=== PATIENT | male | born 2000 | race Caucasian/White ===

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

== ENCOUNTER 2020-01-06 08:00 | Outpatient (CLI) | payer MEDICAID | END 2020-01-06 23:59 | disposition home or self-care (01) | LOC: LAB.R 08:00 | PROVIDERS: ATTEND Pediatrics Pediatric Gastroenterology | DX: K85.00 Idiopathic acute pancreatitis without necrosis or infection (principal); K63.89 Other specified diseases of intestine | CPT/HCPCS: 83993 ==

== ENCOUNTER 2020-01-06 14:29 | Outpatient (CLI) | payer MEDICAID ==
[2020-01-06 14:46] LABS: BASOPHILS # (AUTO) 0.1 10^3/uL (0.0-0.1); BASOPHILS % (AUTO) 1.5 %; EOSINOPHILS # (AUTO) 0.2 10^3/uL (0.0-0.7); EOSINOPHILS % (AUTO) 3.8 %; HGB - HEMOGLOBIN 14.4 g/dL (14.0-18.0); LYMPHOCYTES # (AUTO) 2.2 10^3/uL (1.5-3.5); LYMPHOCYTES % (AUTO) 39.9 %; MEAN CORPUSCULAR HGB CONC 33.9 g/dL (32.0-36.0); MEAN CORPUSCULAR VOLUME 88.5 fL (80.0-94.0); MEAN PLATELET VOLUME 9.6 fL (7.4-11.4); MONOCYTES # (AUTO) 0.5 10^3/uL (0.0-1.0); MONOCYTES % (AUTO) 9.5 %; NEUTROPHILS # (AUTO) 2.5 10^3/uL (1.5-6.6); NEUTROPHILS % (AUTO) 45.1 %; PLT - PLATELET COUNT 214 10^3/uL (130-450); RED CELL DISTRIBUTION WIDTH 12.7 % (12.0-15.0); WHITE BLOOD COUNT 5.5 x10^3/uL (4.8-10.8)
[2020-01-06 15:10] LABS: ALBUMIN 4.7 g/dL (3.2-5.5); ALBUMIN/GLOBULIN RATIO 1.3 (1.0-2.2); ALKALINE PHOSPHATASE 56 IU/L (42-121); ALT ALANINE AMINOTRANSFERASE 20 IU/L (10-60); AST ASPARTATE AMINOTRANSFERASE 18 IU/L (10-42); BILIRUBIN,TOTAL 0.9 mg/dL (0.2-1.0); BUN - BLOOD UREA NITROGEN 10 mg/dL (6-20); CALCIUM 9.4 mg/dL (8.5-10.3); CARBON DIOXIDE - CO2 28 mmol/L (21-32); CHLORIDE 102 mmol/L (101-111); CREATININE 0.9 mg/dL (0.6-1.2); GFR - MDRD 109 (>89); GLUCOSE 95 mg/dL (70-100); LIPASE 26 U/L (22-51); SODIUM 137 mmol/L (135-145); TOTAL PROTEIN 8.3 g/dL (6.7-8.2)
[2020-01-06 15:30] LABS: CRP - C-REACTIVE PROTEIN < 1.0 mg/dL (0-1.0)
== END 2020-01-06 14:30 | disposition home or self-care (01) ==
LOC: LAB 14:29
PROVIDERS: ATTEND Pediatrics Pediatric Gastroenterology
DX: K85.00 Idiopathic acute pancreatitis without necrosis or infection (principal); K63.89 Other specified diseases of intestine
CPT/HCPCS: 36415; 80053; 82306; 83690; 85025; 85651; 86140

== ENCOUNTER 2020-08-07 15:30 | Outpatient (CLI) | payer MEDICAID ==
[2020-08-07 15:58] LABS: BASOPHILS # (AUTO) 0.1 10^3/uL (0.0-0.1); BASOPHILS % (AUTO) 0.9 %; EOSINOPHILS # (AUTO) 0.2 10^3/uL (0.0-0.7); EOSINOPHILS % (AUTO) 2.2 %; HGB - HEMOGLOBIN 14.8 g/dL (14.0-18.0); LYMPHOCYTES # (AUTO) 2.1 10^3/uL (1.5-3.5); LYMPHOCYTES % (AUTO) 30.8 %; MEAN CORPUSCULAR HEMOGLOBIN 29.1 pg (27.0-31.0); MEAN CORPUSCULAR HGB CONC 32.7 g/dL (32.0-36.0); MEAN CORPUSCULAR VOLUME 89.2 fL (80.0-94.0); MEAN PLATELET VOLUME 10.1 fL (7.4-11.4); MONOCYTES # (AUTO) 0.6 10^3/uL (0.0-1.0); MONOCYTES % (AUTO) 8.3 %; NEUTROPHILS % (AUTO) 57.5 %; PLT - PLATELET COUNT 270 10^3/uL (130-450); RED BLOOD COUNT 5.08 10^6/uL (4.70-6.10); RED CELL DISTRIBUTION WIDTH 12.5 % (12.0-15.0); WHITE BLOOD COUNT 6.9 x10^3/uL (4.8-10.8)
[2020-08-07 17:17] LABS: ALBUMIN 5.1 g/dL (3.2-5.5); ALBUMIN/GLOBULIN RATIO 1.4 (1.0-2.2); ALKALINE PHOSPHATASE 54 IU/L (42-121); ALT ALANINE AMINOTRANSFERASE 16 IU/L (10-60); AST ASPARTATE AMINOTRANSFERASE 17 IU/L (10-42); BILIRUBIN,TOTAL 1.1 mg/dL (0.2-1.0); BUN - BLOOD UREA NITROGEN 12 mg/dL (6-20); CALCIUM 10.2 mg/dL (8.5-10.3); CARBON DIOXIDE - CO2 28 mmol/L (21-32); CHLORIDE 101 mmol/L (101-111); GLUCOSE 99 mg/dL (70-100); SODIUM 139 mmol/L (135-145); TOTAL PROTEIN 8.7 g/dL (6.7-8.2)
[2020-08-07 18:02] LABS: CRP - C-REACTIVE PROTEIN < 1.0 mg/dL (0-1.0)
== END 2020-08-07 15:31 | disposition home or self-care (01) ==
LOC: LAB 15:30
PROVIDERS: ATTEND Pediatrics Pediatric Gastroenterology
DX: K52.9 Noninfective gastroenteritis and colitis, unspecified (principal)
CPT/HCPCS: 36415; 80053; 85025; 85651; 86140

== ENCOUNTER 2020-08-15 08:00 | Outpatient (CLI) | payer MEDICAID | END 2020-08-15 23:59 | disposition home or self-care (01) | LOC: LAB.R 08:00 | PROVIDERS: ATTEND Pediatrics Pediatric Gastroenterology | DX: K52.9 Noninfective gastroenteritis and colitis, unspecified (principal) | CPT/HCPCS: 83993 ==

== ENCOUNTER 2021-08-14 07:00 | Outpatient (CLI) | payer MEDICAID | END 2021-08-14 23:59 | disposition home or self-care (01) | LOC: LAB.R 07:00 | PROVIDERS: ATTEND Pediatrics Pediatric Gastroenterology | DX: K52.9 Noninfective gastroenteritis and colitis, unspecified (principal) | CPT/HCPCS: 83993 ==

== ENCOUNTER 2021-10-21 12:40 | Outpatient (CLI) | payer MEDICAID ==
[2021-10-21 12:55] LABS: BASOPHILS # (AUTO) 0.1 10^3/uL (0.0-0.1); BASOPHILS % (AUTO) 1.2 %; EOSINOPHILS # (AUTO) 0.1 10^3/uL (0.0-0.7); EOSINOPHILS % (AUTO) 2.8 %; HCT - HEMATOCRIT 44.9 % (42.0-52.0); HGB - HEMOGLOBIN 15.1 g/dL (14.0-18.0); LYMPHOCYTES # (AUTO) 1.9 10^3/uL (1.5-3.5); LYMPHOCYTES % (AUTO) 37.7 %; MEAN CORPUSCULAR HEMOGLOBIN 29.6 pg (27.0-31.0); MEAN CORPUSCULAR HGB CONC 33.6 g/dL (32.0-36.0); MEAN PLATELET VOLUME 9.4 fL (7.4-11.4); MONOCYTES # (AUTO) 0.5 10^3/uL (0.0-1.0); MONOCYTES % (AUTO) 9.1 %; NEUTROPHILS # (AUTO) 2.5 10^3/uL (1.5-6.6); PLT - PLATELET COUNT 277 10^3/uL (130-450); RED CELL DISTRIBUTION WIDTH 12.3 % (12.0-15.0)
[2021-10-21 13:19] LABS: % IRON SATURATION 39 % (20-50); ALBUMIN 4.8 g/dL (3.2-5.5); ALBUMIN/GLOBULIN RATIO 1.3 (1.0-2.2); ALKALINE PHOSPHATASE 57 IU/L (42-121); ALT ALANINE AMINOTRANSFERASE 17 IU/L (10-60); AST ASPARTATE AMINOTRANSFERASE 18 IU/L (10-42); BILIRUBIN,TOTAL 1.3 mg/dL (0.2-1.0); BUN - BLOOD UREA NITROGEN 11 mg/dL (6-20); CALCIUM 10.1 mg/dL (8.5-10.3); CARBON DIOXIDE - CO2 27 mmol/L (21-32); CHLORIDE 102 mmol/L (101-111); GFR - MDRD 95 (>89); GLUCOSE 102 mg/dL (70-100); IRON 148 ug/dL (45-182); SODIUM 139 mmol/L (135-145); TOTAL IRON BINDING CAPACITY 379 ug/dL (250-450); TOTAL PROTEIN 8.6 g/dL (6.7-8.2); TRANSFERRIN 271 mg/dL (180-329)
[2021-10-21 13:20] LABS: CRP - C-REACTIVE PROTEIN < 1.0 mg/dL (0-1.0)
[2021-10-21 13:38] LABS: FOLATE 15.16 ng/mL (5.90 - >24.8)
[2021-10-24 11:21] LABS: NIL 0.02 IU/mL; TB2-NIL 0.01 IU/mL
== END 2021-10-21 12:41 | disposition home or self-care (01) ==
LOC: LAB 12:40
PROVIDERS: ATTEND Internal Medicine Gastroenterology
DX: K52.9 Noninfective gastroenteritis and colitis, unspecified (principal)
CPT/HCPCS: 36415; 80053; 82306; 82607; 82746; 83540; 84466; 85025; 86140; 86480

== ENCOUNTER 2021-12-11 10:26 | Emergency (ER) | payer MEDICAID ==
[2021-12-11] MEDS ORDERED: CHERRY SYRUP 10 ML UDC PO ONE (11:06)
[2021-12-11] MEDS ORDERED: DEXAMETHASONE 10 MG/ML VIAL PO STA (11:06)
--- NOTE | 2021-12-11 11:27 | ED Physician Documentation ---
History of Present Illness - Stated complaint Stated Complaint: SHOULDER PX - Chief complaint Chief Complaint: Ext Problem - History obtained from History obtained from: Patient - History of Present Illness Timing: How many weeks ago (3-4) - Additonal information Additional information: 21-year-old male who spends a lot of time in an easy chair with his arms on the armrests has noted that he has begun to get some numbness and tingling in his hand on the right side especially to the fourth and fifth digits. He has some pain in the forearm associated with this as well as the elbow and radiating up into the shoulder. He has been into the urgent care clinic and he was prescribed some prednisone which she seemed to think helped a bit. Is been's prescribed some methocarbamol as well which he also seems to think helped a bit. I spoke to the patient's mother who indicates that the amount of debilitation that has present from this pain and numbness in his hand has made it where she has had to feed him even. The patient states that he is now sleeping with his arms to the side and he is no longer trying to put any weight on his elbows. He does not sitting in his easy chair any longer. He did get pain and similar symptoms to the left elbow as well. These are less defined. He denies any neck injury but he does have pain going all the way up to his neck. He has crohns disease and his mother has set up a visit to the refuse laborer. Review of Systems Constitutional: denies: Fever, Chills Ears: denies: Ear pain Nose: denies: Congestion Throat: denies: Sore throat Cardiac: denies: Chest pain / pressure, Palpitations Respiratory: denies: Dyspnea, Cough GI: denies: Abdominal Pain, Vomiting : denies: Dysuria Skin: denies: Rash Musculoskeletal: reports: Neck pain, Extremity pain, Joint pain. denies: Back pain, Extremity swelling, Joint swelling Neurologic: denies: Generalized weakness, Numbness PD PAST MEDICAL HISTORY - Past Medical History Past Medical History: Yes Cardiovascular: None Respiratory: Asthma Neuro: None Endocrine/Autoimmune: None GI: Crohn's disease : None HEENT: None Psych: None Musculoskeletal: Scoliosis Derm: None - Past Surgical History Past Surgical History: No General: Colonoscopy HEENT: Other - Present Medications Home Medications: Ambulatory Orders Medication Instructions Recorded Confirmed Adalimumab [Humira(Cf) Pen] 40 mg IM ONCE 12/11/21 12/11/21 Budesonide [Pulmicort Flexhaler] 90 mcg IH BID 12/11/21 12/11/21 methocarbamoL [Methocarbamol] 500 mg PO TID PRN 12/11/21 12/11/21 methocarbamoL [Methocarbamol] 500 mg PO TID PRN #30 tablet 12/11/21 - Allergies Allergies/Adverse Reactions: Allergies Allergy/AdvReac Type Severity Reaction Status Date / Time peanut AdvReac Rash Verified 12/11/21 10:30 - Social History Does the pt smoke?: No Smoking Status: Never smoker Does the pt drink ETOH?: No Does the pt have substance abuse?: No - Immunizations Immunizations are current?: Yes - POLST Patient has POLST: No PD ED PE NORMAL - Vitals Vital signs reviewed: Yes - General General: Alert and oriented X 3, Well developed/nourished, Other (sitting quietly with both forearms volar side up and hands slightly flexed. ) - HEENT HEENT: Atraumatic, PERRL, EOMI - Neck Neck: Supple, no meningeal sign, No bony TTP - Respiratory Respiratory: No respiratory distress - Derm Derm: Normal color, Warm and dry, No rash - Extremities Extremities: No deformity, No edema, Other (There is no pain or symptoms elicited by tapping the median nerve. There is pain to tapping the ulnar nerve at the ulnar groove. ) - Neuro Neuro: Alert and oriented X 3, mannequin molder 2-12 intact, No motor deficit, Normal speech Eye Opening: Spontaneous Motor: Obeys Commands Verbal: Oriented GCS Score: 15 - Psych Psych: Normal mood, Normal affect Results - Vitals Vitals: Vital Signs - 24 hr 12/11/21 12/11/21 10:33 12:01 Temperature 37.1 C 36.8 C Heart Rate 105 H 92 Respiratory 18 16 Rate Blood Pressure 152/87 H 148/74 H O2 Saturation 98 98 Oxygen O2 Source Room air PD MEDICAL DECISION MAKING - ED course Complexity details: reviewed results, re-evaluated patient, considered differential, d/w patient ED course: 21-year-old male with some numbness to his fourth and fifth digits and pain to his forearms bilaterally worse on the right than the left 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 He does admit to sitting oddly in a easy chair with his elbows against the side rails. He has discontinued this practice and has not recovered his function. We discussed conservative treatment and a follow-up. He will likely need to see a neurologist for electrophysiologic studies. 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 This is usually a result of repetitive movement or compression directly on the elbow. The recommendation is to avoid resting your elbows on anything and if you are doing repetitive movements with your arms decrease this. In addition we have provided a prescription for some methocarbamol for the discomfort of this. It has been escribed to [facility] in [address]. A follow-up with Dr. Loomis for further evaluation including a referral to neurology for conduction velocity studies is indicated. Discharge Date/Time: 12/11/21 12:03
[2021-12-11 12:03] VITALS: BP 148/74
== END 2021-12-11 12:03 | disposition home or self-care (01) ==
LOC: ED 10:26
DX: G56.21 Lesion of ulnar nerve, right upper limb (principal)
CPT/HCPCS: 99282; 99283; A9270

== ENCOUNTER 2021-12-14 11:11 | Outpatient (CLI) | payer MEDICAID ==
--- NOTE | 2021-12-14 12:08 | XRAY Report ---
PROCEDURE: Cervical Spine 2 View INDICATIONS: XRAY TECHNIQUE: 3 view(s) of the cervical spine were acquired. COMPARISON: None. FINDINGS: Bones: No fractures or dislocations to the C7 level. Loss of normal cervical lordosis. The lateral masses of C1 appear intact on the odontoid view. No suspicious bony lesions. Soft tissues: No prevertebral soft tissue swelling. IMPRESSION: No acute fracture. No osseous lesion. If symptoms and/or clinical suspicion for patholog y continue, further assessment with repeat plain films, or advanced imaging (e.g., CT, MRI, or bone s can) is recommended for further assessment. Reviewed by: Sebastián Yost MD on 12/14/2021 12:06 PM PST Approved by: Sebastián Yost MD on 12/14/2021 12:06 PM PST Station ID: [id number]
== END 2021-12-14 11:12 | disposition home or self-care (01) ==
LOC: DI.S 11:11
PROVIDERS: ATTEND Registered Nurse
DX: M54.12 Radiculopathy, cervical region (principal)

== ENCOUNTER 2021-12-20 10:44 | Emergency (ER) | payer MEDICAID ==
--- NOTE | 2021-12-20 11:05 | ED Physician Documentation ---
PD HPI UPPER EXT INJURY - Stated complaint Stated Complaint: ARM/SHOULDER/NECK PX - Chief complaint Chief Complaint: Trauma Ext - History obtained from History obtained from: Patient - History of Present Illness Location: Right, Left, Shoulder, Elbow Type of injury: Other (he had been resting elbows on chair while at desk/computer when first seen and Dx with right condylitis. He is now having pain left elbow and left shoulder, some pain upper back. No rash nor sores.). No: Fall, Twist Where injury occurred: Home Timing - onset: How many weeks ago (few weeks of first elbow pain and now multiple joints. History of Crohns disease.) Timing - duration: Weeks Timing - details: Gradual onset, Still present Worsened by: Moving, Palpating (medial elbows, and posterior shoulders.) Associated symptoms: No: Weakness, Numbness, Swelling Similar symptoms before: No diagnosis (presumed condylitis of elbows on recent visit.) Recently seen: Clinic (seen in ER and then PMD. Not improved with Tylenol. Can't take NSAIDs due to Crohns. Had felt improved after single dose of Decadron at prior ER visit.) Review of Systems Constitutional: reports: Myalgias. denies: Fever, Chills Nose: denies: Rhinorrhea / runny nose, Congestion Throat: denies: Sore throat Cardiac: denies: Chest pain / pressure Respiratory: denies: Cough GI: reports: Abdominal Pain (mild chronic). denies: Nausea, Vomiting, Diarrhea (not currently; states his Crohns is under control now.) PD PAST MEDICAL HISTORY - Past Medical History Cardiovascular: None Respiratory: Asthma Neuro: None Endocrine/Autoimmune: None GI: Crohn's disease : None HEENT: None Psych: None Musculoskeletal: Scoliosis Derm: None - Past Surgical History Past Surgical History: No General: Colonoscopy HEENT: Other - Present Medications Home Medications: Ambulatory Orders Medication Instructions Recorded Confirmed Adalimumab [Humira(Cf) Pen] 40 mg IM ONCE 12/11/21 12/11/21 Budesonide [Pulmicort Flexhaler] 90 mcg IH BID 12/11/21 12/11/21 methocarbamoL [Methocarbamol] 500 mg PO TID PRN 12/11/21 12/11/21 methocarbamoL [Methocarbamol] 500 mg PO TID PRN #30 tablet 12/11/21 dexAMETHasone [Decadron] 4 mg PO DAILY #7 tablet 12/20/21 methocarbamoL [Robaxin] 500 mg PO Q6H PRN #30 tablet 12/20/21 oxyCODONE [Roxicodone] 5 mg PO Q6H PRN #15 tablet 12/20/21 - Allergies Allergies/Adverse Reactions: Allergies Allergy/AdvReac Type Severity Reaction Status Date / Time peanut AdvReac Rash Verified 12/11/21 10:30 tree nut AdvReac Unknown Verified 12/20/21 10:56 - Social History Does the pt smoke?: No Smoking Status: Never smoker Does the pt drink ETOH?: No Does the pt have substance abuse?: No - Immunizations Immunizations are current?: Yes - POLST Patient has POLST: No PD ED PE NORMAL - Vitals Vital signs reviewed: Yes - General General: Alert and oriented X 3, Well developed/nourished - Neck Neck: Supple, no meningeal sign, No adenopathy - Cardiac Cardiac: RRR, No murmur, No rub - Respiratory Respiratory: Clear bilaterally - Derm Derm: Normal color, Warm and dry, No rash - Extremities Extremities: Other (both elbows tender at medial epicondyles without redness nor rash. Some tender right posterior shoulder. ) - Neuro Neuro: Alert and oriented X 3, No motor deficit, No sensory deficit, Normal speech Results - Vitals Vitals: Vital Signs - 24 hr 12/20/21 12/20/21 10:52 12:44 Temperature 36.9 C 36.6 C Heart Rate 86 88 Respiratory 14 16 Rate Blood Pressure 140/75 H 128/80 O2 Saturation 98 100 Oxygen O2 Source Room air - Labs Labs: Laboratory Tests 12/20/21 12/20/21 12/20/21 11:58 11:58 11:58 WBC RBC Hgb Hct MCV MCH MCHC RDW Plt Count MPV Neut # (Auto) Lymph # (Auto) [place] # (Auto) Eos # (Auto) Baso # (Auto) Absolute Nucleated RBC Nucleated RBC % ESR 1 Sodium 137 Potassium 4.0 Chloride 101 Carbon Dioxide 27 Anion Gap 9.0 BUN 13 Creatinine 0.9 Estimated GFR (MDRD) 107 Glucose 99 Calcium 10.0 Total Bilirubin 1.1 H AST 22 ALT 30 Alkaline Phosphatase 46 Total Creatine Kinase 128 C-Reactive Protein < 1.0 Total Protein 8.0 Albumin 4.7 Globulin 3.3 Albumin/Globulin Ratio 1.4 Lipase 32 Rheumatoid Factor NEGATIVE 12/20/21 11:58 WBC 5.7 RBC 4.84 Hgb 14.6 Hct 43.1 MCV 89.0 MCH 30.2 MCHC 33.9 RDW 12.8 Plt Count 276 MPV 9.5 Neut # (Auto) 3.0 Lymph # (Auto) 2.0 [place] # (Auto) 0.5 Eos # (Auto) 0.1 Baso # (Auto) 0.1 Absolute Nucleated RBC 0.00 Nucleated RBC % 0.0 ESR Sodium Potassium Chloride Carbon Dioxide Anion Gap BUN Creatinine Estimated GFR (MDRD) Glucose Calcium Total Bilirubin AST ALT Alkaline Phosphatase Total Creatine Kinase C-Reactive Protein Total Protein Albumin Globulin Albumin/Globulin Ratio Lipase Rheumatoid Factor PD MEDICAL DECISION MAKING - ED course Complexity details: reviewed results, considered differential (polyarthritis. May be just epicondylitis of both elbow from motion/pressure. But consider autoimmune disorder. Pt being referred to Rheum, so can get labs initially evaluating for that. ), d/w patient Departure - Departure Disposition: Home, Self Care Clinical Impression: Epicondylitis elbow, medial Qualifiers: Laterality: unspecified laterality Qualified Code(s): M77.00 - Medial epicondylitis, unspecified elbow Condition: Stable Record reviewed to determine appropriate education?: Yes Instructions: ED Epicondylitis Lateral Elbow Follow-Up: Chalino Loomis MD [Primary Care Provider] - Prescriptions: dexAMETHasone [Decadron] 4 mg PO DAILY #7 tablet methocarbamoL [Robaxin] 500 mg PO Q6H PRN #30 tablet PRN Reason: Spasms oxyCODONE [Roxicodone] 5 mg PO Q6H PRN #15 tablet PRN Reason: Pain Comments: I would suggest picking up some forearm bands that you can get at the pharmacy that are used for "tennis elbow". These are typically in with other sports where injury treatment devices such as knee braces and ankle braces and wrist braces. But these are particularly elbow bands that are used on the proximal forearm to take some of the movement and pressure out of the tendon movement at the elbow. They are not worn over the area that is tender in particular. This would be useful for elbow tendinitis which it seems like. We can also use steroid and anti-inflammatories of dexamethasone daily for a week. To that add Tylenol 4 times daily if needed for pain and oxycodone if needed for worse pain. There may not necessarily be a muscle spasm component to this but if your methocarbamol feels like it is helpful and you can continue that. We did do some blood tests here that would screen for more systemic autoimmune arthritides such as rheumatoid or lupus. The results of these will will come back in a day or 2. Have your primary care follow-up with them and will be a good lodging point for a further rheumatology evaluation. Continue your other usual medicines. I transmitted your prescriptions to [facility] in [place]. I am prescribing a short course of narcotic pain medication for you. These are potentially dangerous and addictive medications that should be used carefully. These medications may constipate you. Take an [id number] stool softener such as docusate twice daily with plenty of water while taking these medications. If you go 24 hours without a bowel movement, take [id number] MiraLAX, per package instructions. Do not drink or drive while taking these medications. If you received narcotic or sedating medications while in the emergency department do not drive for 24 hours. Store this medication in a safe, secure place and out of reach of children. It is a violation of federal law to give or sell this medication to another person or to use in a manner other than prescribed. The ED will not refill narcotic prescriptions, including prescriptions lost or stolen. You can dispose of unwanted medications at the [facility]'s office or at several pharmacies such as [facility]. Discharge Date/Time: 12/20/21 12:44
[2021-12-20] MEDS ORDERED: oxyCODONE 5 MG TABLET PO STA (11:45)
[2021-12-20] MEDS ORDERED: DEXAMETHASONE 10 MG/ML VIAL PO STA (11:45)
[2021-12-20] MEDS ORDERED: CHERRY SYRUP 10 ML UDC PO ONE (11:45)
[2021-12-20 12:04] LABS: BASOPHILS # (AUTO) 0.1 10^3/uL (0.0-0.1); BASOPHILS % (AUTO) 1.1 %; EOSINOPHILS # (AUTO) 0.1 10^3/uL (0.0-0.7); EOSINOPHILS % (AUTO) 2.1 %; HCT - HEMATOCRIT 43.1 % (42.0-52.0); HGB - HEMOGLOBIN 14.6 g/dL (14.0-18.0); LYMPHOCYTES % (AUTO) 35.1 %; MEAN CORPUSCULAR HEMOGLOBIN 30.2 pg (27.0-31.0); MEAN CORPUSCULAR HGB CONC 33.9 g/dL (32.0-36.0); MEAN PLATELET VOLUME 9.5 fL (7.4-11.4); MONOCYTES # (AUTO) 0.5 10^3/uL (0.0-1.0); MONOCYTES % (AUTO) 9.2 %; NEUTROPHILS % (AUTO) 52.3 %; PLT - PLATELET COUNT 276 10^3/uL (130-450); RED BLOOD COUNT 4.84 10^6/uL (4.70-6.10); RED CELL DISTRIBUTION WIDTH 12.8 % (12.0-15.0); WHITE BLOOD COUNT 5.7 x10^3/uL (4.8-10.8)
[2021-12-20 12:27] LABS: ALBUMIN 4.7 g/dL (3.2-5.5); ALBUMIN/GLOBULIN RATIO 1.4 (1.0-2.2); ALKALINE PHOSPHATASE 46 IU/L (42-121); ALT ALANINE AMINOTRANSFERASE 30 IU/L (10-60); AST ASPARTATE AMINOTRANSFERASE 22 IU/L (10-42); BILIRUBIN,TOTAL 1.1 mg/dL (0.2-1.0); BUN - BLOOD UREA NITROGEN 13 mg/dL (6-20); CARBON DIOXIDE - CO2 27 mmol/L (21-32); CHLORIDE 101 mmol/L (101-111); CK- CREATINE KINASE 128 IU/L (22-269); CREATININE 0.9 mg/dL (0.6-1.2); GFR - MDRD 107 (>89); GLUCOSE 99 mg/dL (70-100); LIPASE 32 U/L (22-51); SODIUM 137 mmol/L (135-145)
[2021-12-20 12:45] VITALS: BP 128/80
[2021-12-20 12:45] LABS: CRP - C-REACTIVE PROTEIN < 1.0 mg/dL (0-1.0)
[2021-12-20 13:00] LABS: RHEUMATOID FACTOR NEGATIVE (Negative)
[2021-12-22 09:31] LABS: ANA SCREEN NEGATIVE (NEGATIVE)
== END 2021-12-20 12:44 | disposition home or self-care (01) ==
LOC: ED 10:44
DX: M77.00 Medial epicondylitis, unspecified elbow (principal)
CPT/HCPCS: 36415; 80053; 82550; 83690; 85025; 85651; 86038; 86140; 86430; 86812; 99282; 99283; A9270

== ENCOUNTER 2021-12-24 11:32 | Emergency (ER) | payer MEDICAID ==
[2021-12-24] MEDS ORDERED: SODIUM CHLORIDE 0.9% 1,000 ML IV STA (11:53)
[2021-12-24] MEDS ORDERED: diphenhydrAMINE INJ 50 MG/ML VIAL IVP STA (11:53)
[2021-12-24] MEDS ORDERED: KETOROLAC 30 MG/ML VIAL IVP STA (11:53)
--- NOTE | 2021-12-24 12:00 | ED Physician Documentation ---
History of Present Illness - Stated complaint Stated Complaint: HEAD PX, HEADACHE - Chief complaint Chief Complaint: Neuro - Additonal information Additional information: 21-year-old male presents emergency department for evaluation of a posterior headache that he reports began about 3 to 4 days ago. He describes it as a vice-like like he is wearing a helmet. Pain radiates down into the neck. Pain is constant. Not worse with positioning or supine position. No fevers, nausea or vomiting. No diplopia. He has taken Tylenol without relief of headache. Headache was not sudden onset. No focal deficits. Denies any hx of headaches p rior to this Seen here 4 days ago for evaluation of multiple joint pain including elbows and arms/shoulders. At that time ER testing included sed rate, CRP, HLA FERNANDO and RA factor which were all negative. Patient is currently taking dexamethasone which she does not feel is improved his symptoms. He had does have a history of Crohn's disorder for which he takes Humira. His most recent injection was 12/23/2021. He does have a referral pending to rheumatology. Review of Systems Constitutional: denies: Fever, Chills Eyes: denies: Loss of vision, Decreased vision, Photophobia Ears: reports: Reviewed and negative Nose: reports: Reviewed and negative Throat: reports: Dental pain / toothache Cardiac: reports: Reviewed and negative Respiratory: reports: Reviewed and negative GI: reports: Reviewed and negative : reports: Dysuria Skin: reports: Reviewed and negative Musculoskeletal: reports: Neck pain, Joint pain. denies: Extremity pain, Joint swelling Neurologic: reports: Headache. denies: Generalized weakness, Focal weakness, Numbness, Difficulty speaking, Syncope, Seizure, Confused, LOC Psychiatric: reports: Reviewed and negative Endocrine: reports: Reviewed and negative PD PAST MEDICAL HISTORY - Past Medical History Past Medical History: Yes Cardiovascular: None Respiratory: Asthma Neuro: Headaches Endocrine/Autoimmune: None GI: Crohn's disease : None HEENT: None Psych: None Musculoskeletal: Scoliosis Derm: None - Past Surgical History Past Surgical History: No General: Colonoscopy HEENT: Other - Present Medications Home Medications: Ambulatory Orders Medication Instructions Recorded Confirmed Adalimumab [Humira(Cf) Pen] 40 mg IM ONCE 12/11/21 12/24/21 Budesonide [Pulmicort Flexhaler] 90 mcg IH BID 02/08/22 02/21/22 dexAMETHasone [Decadron] 4 mg PO DAILY #7 tablet 12/20/21 12/24/21 methocarbamoL [Robaxin] 500 mg PO Q6H PRN #30 tablet 12/20/21 12/24/21 oxyCODONE [Roxicodone] 5 mg PO Q6H PRN #15 tablet 12/20/21 12/24/21 - Allergies Allergies/Adverse Reactions: Allergies Allergy/AdvReac Type Severity Reaction Status Date / Time peanut AdvReac Rash Verified 12/24/21 11:36 tree nut AdvReac Unknown Verified 12/24/21 11:36 - Social History Does the pt smoke?: No Smoking Status: Never smoker Does the pt drink ETOH?: No Does the pt have substance abuse?: No - Immunizations Immunizations are current?: Yes - POLST Patient has POLST: No PD ED PE NORMAL - General General: Alert and oriented X 3, No acute distress, Well developed/nourished - HEENT HEENT: Atraumatic, Ears normal, Moist mucous membranes, Pharynx benign. No: Dentition benign (poor dentitiion; gingival inflammation) - Neck Neck: Supple, no meningeal sign, No bony TTP, Thyroid normal, No JVD - Cardiac Cardiac: RRR, No murmur, No gallop, No rub - Respiratory Respiratory: No respiratory distress, Clear bilaterally - Abdomen Abdomen: Normal bowel sounds, Soft, Non tender - Rectal Rectal: Deferred, Pt declined - Back Back: No CVA TTP, No spinal TTP - Derm Derm: Normal color, Warm and dry, No rash - Extremities Extremities: No deformity, No tenderness to palpate, No edema. No: Normal ROM s pain (mild tenderness with ROM of elbow and shoudler joints; full motor strength no swelling, erythema) - Neuro Neuro: Alert and oriented X 3, market maker 2-12 intact, No motor deficit, No sensory deficit, Normal speech Eye Opening: Spontaneous Motor: Obeys Commands Verbal: Oriented GCS Score: 15 Results - Vitals Vitals: Vital Signs - 24 hr 12/24/21 11:36 Temperature 36.5 C Heart Rate 93 Respiratory 18 Rate Blood Pressure 129/84 H O2 Saturation 97 Oxygen O2 Source Room air PD MEDICAL DECISION MAKING - ED course Complexity details: reviewed old records, reviewed results, re-evaluated patient, considered differential, d/w patient ED course: 21-year-old male who is well-appearing presents the emergency department for reevaluation of multiple joint pains namely his elbows and shoulders as well as headache and neck and upper back pain. The symptoms began 3 days ago but he did have a ED visit 4 days ago for joint pain. Currently on dexamethasone. He does have a history of Crohn's disorder for which she is on Humira. No fevers focal neuro changes. Headache was not sudden onset. Patient was given saline, Benadryl and Toradol with minimal relief of pain. Patient is currently under referral to a teletype technician for further evaluation of multiple joint complaints. ED testing completed 4 days ago did not yield an obvious cause as his ASA Rh and HLA, esr and sed rate factors were all negative. Patient is encouraged occasional use of NSAID medication for headache, use of the methocarbamol as he does experience significant tension in his upper neck and back as well as Tylenol. Emergent worrisome return precautions were discussed. Departure - Departure Disposition: 01 Home, Self Care Clinical Impression: Multiple joint pain Headache Qualifiers: Headache type: unspecified Headache chronicity pattern: acute headache Intractability: not intractable Qualified Code(s): R51.9 - Headache, unspecified Condition: Stable Record reviewed to determine appropriate education?: Yes Instructions: ED Cephalgia Unspecified Comments: [place] you are seen today in the ER for evaluation of a headache as well as reevaluation of multiple joint pains. When you are seen 4 days ago you had fairly extensive laboratory testing that was all essentially unremarkable. This did include testing for diseases such as rheumatoid arthritis and lupus. The cause of your headache is not clear though it may be related to some of the medications that you are prescribed for your Crohn's disease or the Decadron. I encourage you to stay well-hydrated. For the tension you are feeling in your neck and upper back it is okay to take the methocarbamol. Longer-term evaluation of your joint concerns is going to be best served with a teletype technician. Please continue to follow-up for this referral. Return to the ER if you develop any fevers, have uncontrolled vomiting, slurred speech, facial droop or sudden weakness in your arms or legs.
[2021-12-24 12:57] VITALS: BP 130/80
== END 2021-12-24 12:59 | disposition home or self-care (01) ==
LOC: ED 11:32
DX: M25.522 Pain in left elbow (principal); R51.9 Headache, unspecified; M25.521 Pain in right elbow; M25.512 Pain in left shoulder; M25.511 Pain in right shoulder; M54.2 Cervicalgia; M54.6 Pain in thoracic spine
CPT/HCPCS: 96374; 96375; 99282; 99283; J1200

== ENCOUNTER 2022-01-27 10:22 | Outpatient (CLI) | payer MEDICAID ==
[2022-01-27 10:41] LABS: HGB - HEMOGLOBIN 14.3 g/dL (14.0-18.0); MEAN CORPUSCULAR HEMOGLOBIN 30.2 pg (27.0-31.0); MEAN CORPUSCULAR HGB CONC 33.3 g/dL (32.0-36.0); MEAN CORPUSCULAR VOLUME 90.9 fL (80.0-94.0); RED BLOOD COUNT 4.73 10^6/uL (4.70-6.10); WHITE BLOOD COUNT 5.4 x10^3/uL (4.8-10.8)
[2022-01-27 10:42] LABS: BASOPHILS # (AUTO) 0.1 10^3/uL (0.0-0.1); BASOPHILS % (AUTO) 1.3 %; EOSINOPHILS # (AUTO) 0.1 10^3/uL (0.0-0.7); LYMPHOCYTES # (AUTO) 2.4 10^3/uL (1.5-3.5); LYMPHOCYTES % (AUTO) 43.8 %; MONOCYTES # (AUTO) 0.6 10^3/uL (0.0-1.0); MONOCYTES % (AUTO) 10.9 %; NEUTROPHILS # (AUTO) 2.3 10^3/uL (1.5-6.6); NEUTROPHILS % (AUTO) 41.8 %; PLT - PLATELET COUNT 245 10^3/uL (130-450)
[2022-01-27 11:21] LABS: ALBUMIN 4.7 g/dL (3.2-5.5); ALBUMIN/GLOBULIN RATIO 1.4 (1.0-2.2); ALKALINE PHOSPHATASE 52 IU/L (42-121); ALT ALANINE AMINOTRANSFERASE 41 IU/L (10-60); AST ASPARTATE AMINOTRANSFERASE 28 IU/L (10-42); BILIRUBIN,TOTAL 0.9 mg/dL (0.2-1.0); BUN - BLOOD UREA NITROGEN 12 mg/dL (6-20); CALCIUM 9.8 mg/dL (8.5-10.3); CARBON DIOXIDE - CO2 28 mmol/L (21-32); CHLORIDE 100 mmol/L (101-111); CREATININE 0.8 mg/dL (0.6-1.2); GFR - MDRD 122 (>89); GLUCOSE 100 mg/dL (70-100); POTASSIUM 3.9 mmol/L (3.5-5.0); SODIUM 138 mmol/L (135-145); TOTAL PROTEIN 8.1 g/dL (6.7-8.2)
[2022-01-27 11:25] LABS: CRP - C-REACTIVE PROTEIN < 1.0 mg/dL (0-1.0)
== END 2022-01-27 10:23 | disposition home or self-care (01) ==
LOC: LAB 10:22
PROVIDERS: ATTEND Internal Medicine Gastroenterology
DX: K52.9 Noninfective gastroenteritis and colitis, unspecified (principal)
CPT/HCPCS: 36415; 80053; 85025; 86140

== ENCOUNTER 2022-04-22 11:41 | Outpatient (CLI) | payer MEDICAID ==
[2022-04-22 11:59] LABS: BASOPHILS # (AUTO) 0.1 10^3/uL (0.0-0.1); BASOPHILS % (AUTO) 1.8 %; EOSINOPHILS # (AUTO) 0.5 10^3/uL (0.0-0.7); EOSINOPHILS % (AUTO) 8.3 %; HCT - HEMATOCRIT 46.4 % (42.0-52.0); HGB - HEMOGLOBIN 15.3 g/dL (14.0-18.0); LYMPHOCYTES # (AUTO) 2.5 10^3/uL (1.5-3.5); LYMPHOCYTES % (AUTO) 40.9 %; MEAN CORPUSCULAR HEMOGLOBIN 29.8 pg (27.0-31.0); MEAN CORPUSCULAR VOLUME 90.3 fL (80.0-94.0); MEAN PLATELET VOLUME 9.9 fL (7.4-11.4); MONOCYTES # (AUTO) 0.5 10^3/uL (0.0-1.0); NEUTROPHILS # (AUTO) 2.4 10^3/uL (1.5-6.6); NEUTROPHILS % (AUTO) 39.8 %; PLT - PLATELET COUNT 260 10^3/uL (130-450); RED BLOOD COUNT 5.14 10^6/uL (4.70-6.10); RED CELL DISTRIBUTION WIDTH 11.9 % (12.0-15.0)
[2022-04-22 12:27] LABS: ALBUMIN 4.6 g/dL (3.2-5.5); ALBUMIN/GLOBULIN RATIO 1.1 (1.0-2.2); ALKALINE PHOSPHATASE 58 IU/L (42-121); ALT ALANINE AMINOTRANSFERASE 24 IU/L (10-60); AST ASPARTATE AMINOTRANSFERASE 20 IU/L (10-42); BILIRUBIN,TOTAL 0.9 mg/dL (0.2-1.0); BUN - BLOOD UREA NITROGEN 12 mg/dL (6-20); CALCIUM 10.2 mg/dL (8.5-10.3); CARBON DIOXIDE - CO2 30 mmol/L (21-32); CHLORIDE 103 mmol/L (101-111); GFR - MDRD 94 (>89); GLUCOSE 111 mg/dL (70-100); POTASSIUM 3.8 mmol/L (3.5-5.0); SODIUM 140 mmol/L (135-145); TOTAL PROTEIN 8.6 g/dL (6.7-8.2)
[2022-04-22 13:40] LABS: CRP - C-REACTIVE PROTEIN < 1.0 mg/dL (0-1.0)
== END 2022-04-22 11:42 | disposition home or self-care (01) ==
LOC: LAB 11:41
PROVIDERS: ATTEND Internal Medicine Gastroenterology
DX: K52.9 Noninfective gastroenteritis and colitis, unspecified (principal)
CPT/HCPCS: 36415; 80053; 85025; 86140

== ENCOUNTER 2022-09-05 08:00 | Outpatient (CLI) | payer MEDICAID ==
--- NOTE | 2022-09-06 09:16 | XRAY Report ---
PROCEDURE: Cervical Spine 2 View INDICATIONS: WEAKNESS OF BILATERAL ARMS TECHNIQUE: 3view(s) of the cervical spine were acquired. COMPARISON: X-ray cervical spine, 12/14/1021. FINDINGS: Bones: No fractures or dislocations to the T1 level. Odontoid view is suboptimal. The lateral diann s of C1 appear intact on the odontoid view. No suspicious bony lesions. Soft tissues: No prevertebral soft tissue swelling. IMPRESSION: 1. No acute osseous abnormalities of the odontoid view is suboptimal. 2. If there is clinical suspicion for radiculopathy symptoms, MRI would be helpful. Reviewed by: Krista Garcia MD on 09/06/2022 9:15 AM PDT Approved by: Krista Garcia MD on 09/06/2022 9:15 AM PDT Station ID: [id number]
== END 2022-09-05 23:59 | disposition home or self-care (01) ==
LOC: DI.S 08:00
PROVIDERS: ATTEND Registered Nurse
DX: R29.898 Other symptoms and signs involving the musculoskeletal system (principal)

== ENCOUNTER 2022-10-03 13:58 | Outpatient (CLI) | payer MEDICAID ==
--- NOTE | 2022-10-03 15:42 | MRI Report ---
PROCEDURE: CERVICAL SPINE WO INDICATIONS: BILATERAL ARM WEAKNESS, CERVICAL RADICULOPATHY TECHNIQUE: Noncontrast sagittal T1 spin echo and T2 fast spin echo, sagittal STIR, foraminal oblique sagittal T2 fast spin echo, and axial gradient echo or T2 fast spin echo through the cervical spine. COMPARISON: None. FINDINGS: Image quality: Excellent. Alignment and Curvature: There is normal bony alignment. Bone Marrow: Marrow demonstrates normal overall signal. Spinal Cord: Visualized spinal cord has normal size and signal. No cerebellar tonsillar herniation. Regional Soft Tissues: No paravertebral masses. Prevertebral soft tissues are normal in thickness. C2-C3: Normal in appearance. C3-C4: Normal in appearance. C4-C5: Normal in appearance. C5-C6: Normal in appearance. C6-C7: Normal in appearance. C7-T1: Normal in appearance. IMPRESSION: Unremarkable MRI of the cervical spine without acute finding, significant degenerative change, spinal canal stenosis, or neural foraminal stenosis. Reviewed by: Luke Etienne MD on 10/03/2022 3:41 PM PST Approved by: Luke Etienne MD on 10/03/2022 3:41 PM PST Station ID: [id number]
== END 2022-10-03 13:59 | disposition home or self-care (01) ==
LOC: DI 13:58
PROVIDERS: ATTEND Registered Nurse
DX: M54.12 Radiculopathy, cervical region (principal); R29.898 Other symptoms and signs involving the musculoskeletal system

== ENCOUNTER 2023-02-09 15:20 | Emergency (ER) | payer MEDICAID ==
[2023-02-09] MEDS ORDERED: LORazepam 2 MG/ML VIAL IVP STA ×2 (15:46→16:16)
[2023-02-09] MEDS ORDERED: SODIUM CHLORIDE 0.9% 1,000 ML IV STA (15:46)
--- NOTE | 2023-02-09 15:48 | ED Physician Documentation ---
History of Present Illness - Stated complaint Stated Complaint: RACING HEART, NAUSEA - Chief complaint Chief Complaint: Cardiac - Additonal information Additional information: 22-year-old male presents to the emergency department stating to this provider that he is having a panic attack. He states that about 2 weeks ago he took a tincture of CBD which he reports gave him a "dissociated state." Since then when he thinks about that event he will have panic and worry. Last night he had a panic attack which she was able to calm himself through it. However today when he thinks about his dissociative state, he began having racing heart, racing thoughts, nausea and substernal chest pain and chest pressure and can not calm himself. Reports he is very worried about his heart. The patient does have a history of Crohn's for which she takes Humira. Also has a history of asthma for which she is on 2 inhalers. States that the panic attack caused his asthma to flare so he took the albuterol which only worsened the heart rate. He does endorse casual THC use in addition to the CBD tinctures. Denies any other drug use. Reports a longstanding history of anxiety for which she is unmedicated. There is no dyspnea. No pleuritic chest pain. No unilateral leg swelling. He is not on any control or OCP or hormone supplement. No recent surgeries. No personal history of blood clots or cancer Review of Systems Constitutional: denies: Fever, Chills Throat: reports: Reviewed and negative Cardiac: reports: Chest pain / pressure, Palpitations. denies: Pedal edema Respiratory: reports: Wheezing. denies: Dyspnea, Cough GI: reports: Reviewed and negative : reports: Reviewed and negative Skin: reports: Reviewed and negative Musculoskeletal: reports: Reviewed and negative PD PAST MEDICAL HISTORY - Past Medical History Cardiovascular: None Respiratory: Asthma Neuro: Headaches Endocrine/Autoimmune: None GI: Crohn's disease : None HEENT: None Psych: None Musculoskeletal: Scoliosis Derm: None - Past Surgical History Past Surgical History: No General: Colonoscopy HEENT: Other - Present Medications Home Medications: Ambulatory Orders Medication Instructions Recorded Confirmed Adalimumab [Humira(Cf) Pen] 40 mg IM ONCE 12/11/21 12/24/21 Budesonide [Pulmicort Flexhaler] 90 mcg IH BID 12/11/21 12/24/21 dexAMETHasone [Decadron] 4 mg PO DAILY #7 tablet 12/20/21 12/24/21 methocarbamoL [Robaxin] 500 mg PO Q6H PRN #30 tablet 12/20/21 12/24/21 oxyCODONE [Roxicodone] 5 mg PO Q6H PRN #15 tablet 12/20/21 12/24/21 Propranolol [Inderal] 10 mg PO TID PRN #30 tablet 02/09/23 - Allergies Allergies/Adverse Reactions: Allergies Allergy/AdvReac Type Severity Reaction Status Date / Time peanut AdvReac Rash Verified 02/09/23 15:35 tree nut AdvReac Unknown Verified 02/09/23 15:35 - Social History Does the pt smoke?: No Smoking Status: Never smoker Does the pt drink ETOH?: No Does the pt have substance abuse?: No - Immunizations Immunizations are current?: Yes - POLST Patient has POLST: No PD ED PE NORMAL - General General: Alert and oriented X 3. No: No acute distress (Quite anxious appearing. Disheveled. Dressed in [employer]) - HEENT HEENT: Atraumatic, Moist mucous membranes, Pharynx benign - Cardiac Cardiac: RRR (Sinus tachycardia variable rate in the 140s.), No murmur, Strong equal pulses - Respiratory Respiratory: No respiratory distress, Clear bilaterally - Abdomen Abdomen: Normal bowel sounds, Soft - Back Back: No CVA TTP - Derm Derm: Normal color, Warm and dry, No rash - Extremities Extremities: No deformity, No tenderness to palpate, Normal ROM s pain - Neuro Neuro: Alert and oriented X 3, rn iv therapy 2-12 intact Eye Opening: Spontaneous Motor: Obeys Commands Verbal: Oriented GCS Score: 15 Results - Vitals Vitals: Vital Signs - 24 hr 02/09/23 02/09/23 02/09/23 15:29 16:11 16:32 Temperature 36.9 C Heart Rate 150 H 120 H 112 H Respiratory 18 16 16 Rate Blood Pressure 146/78 H 132/85 H 141/87 H O2 Saturation 100 98 97 02/09/23 02/09/23 02/09/23 17:09 17:45 18:00 Temperature Heart Rate 123 H 127 H 130 H Respiratory 20 20 16 Rate Blood Pressure 139/79 H 130/85 H 135/84 H O2 Saturation 98 98 98 02/09/23 02/09/23 18:32 18:34 Temperature Heart Rate 124 H 114 H Respiratory 15 20 Rate Blood Pressure 132/85 H O2 Saturation 98 98 Oxygen O2 Source Room air - EKG (time done) 1529 EKG releavant findings:: EKG personally interpreted by author of this note. Relevant findings are: Rate: Rate (enter#) (144), Tachy Rhythm: Sinus tachycardia Linn: Normal Intervals: No: Prolonged QT QRS: Normal Ischemia: ST depression (Inferior leads. Likely rate dependent) Compare to prior EKG: Old EKG unavailable Computer interpretation: Agree with computer - Labs Labs: Laboratory Tests 02/09/23 02/09/23 02/09/23 15:49 15:49 15:49 WBC 7.1 RBC 5.17 Hgb 15.3 Hct 44.5 MCV 86.1 MCH 29.6 MCHC 34.4 RDW 12.2 Plt Count 276 MPV 10.1 Neut # (Auto) 4.4 Lymph # (Auto) 2.1 Chilton # (Auto) 0.4 Eos # (Auto) 0.1 Baso # (Auto) 0.1 Absolute Nucleated RBC 0.00 Nucleated RBC % 0.0 Sodium 138 Potassium 3.4 L Chloride 105 Carbon Dioxide 23 Anion Gap 10.0 BUN 11 Creatinine 1.2 Estimated GFR (MDRD) 76 L Glucose 142 H Calcium 9.8 Total Bilirubin 1.1 H AST 20 ALT 19 Alkaline Phosphatase 53 Troponin I High Sens < 2.3 L Total Protein 8.5 H Albumin 4.8 Globulin 3.7 Albumin/Globulin Ratio 1.3 Lipase 35 Urine Opiates Screen Ur Oxycodone Screen Urine Methadone Screen Ur Propoxyphene Screen Ur Barbiturates Screen Ur Tricyclics Screen Ur Phencyclidine Scrn Ur Amphetamine Screen U Methamphetamines Scrn U Benzodiazepines Scrn Urine Cocaine Screen U Cannabinoids Screen 02/09/23 16:00 WBC RBC Hgb Hct MCV MCH MCHC RDW Plt Count MPV Neut # (Auto) Lymph # (Auto) Chilton # (Auto) Eos # (Auto) Baso # (Auto) Absolute Nucleated RBC Nucleated RBC % Sodium Potassium Chloride Carbon Dioxide Anion Gap BUN Creatinine Estimated GFR (MDRD) Glucose Calcium Total Bilirubin AST ALT Alkaline Phosphatase Troponin I High Sens Total Protein Albumin Globulin Albumin/Globulin Ratio Lipase Urine Opiates Screen NEGATIVE Ur Oxycodone Screen NEGATIVE Urine Methadone Screen NEGATIVE Ur Propoxyphene Screen NEGATIVE Ur Barbiturates Screen NEGATIVE Ur Tricyclics Screen NEGATIVE Ur Phencyclidine Scrn NEGATIVE Ur Amphetamine Screen NEGATIVE U Methamphetamines Scrn NEGATIVE U Benzodiazepines Scrn NEGATIVE Urine Cocaine Screen NEGATIVE U Cannabinoids Screen NEGATIVE - Rads (name of study) cxr Relevant Findings:: EMP independent interpretation of test (No acute cardiopulmonary process) PD Medical Decision Making - ED course Complexity details: reviewed results, re-evaluated patient, considered differential, d/w patient ED course: 22-year-old male presents emergency department attended by his father for evaluation of panic, worry and racing heart. Reports the symptoms began about 2 weeks ago after he had a dissociative effect after using a tincture of CBD oil. He does endorse some recreational cannabis use otherwise. He states a longstanding history of anxiety but over the last few weeks when he thinks about his dissociative event he often begins to feel worry. He has been unable to break this cycle over the last 24 hours. On presentation to the ER I am greeted by an alert well-appearing though anxious young adult male. On the monitor he is noted to be in sinus tachycardia rate variable in the 140s. With the exception of tachycardia cardiopulmonary auscultation was unremarkable. He denied chest pain or shortness of air. No abdominal tenderness was elicited. He is not febrile. There is no hypotension. I obtained CBC electrolytes and high-sensitivity troponin. No findings to suggest anemia or electrolyte disturbance as a cause of the tachycardia. Urine drug screen is also negative for other causative agents such as amphetamines/methamphetamines. He is noted to be cannabis negative. Chest x-ray per radiology interpretation shows no acute focal opacities. No findings of pleural effusion, pneumothorax or pneumonia. By Wells criteria with 1.5 points, he is considered low risk for a PE. Initially I did give the patient a single dose of 1 mg Ativan IV which did improve the anxiety but it did not fully christofer. This was followed by a second dose IV with again the same result. Following the 2 doses of Ativan and 1 L of IV fluid his resting heart rate appeared to be in the 120s. Patient and his father are exceedingly anxious and worried about the tachycardia. They endorse worries that he Has bad side effects to medications. In addition he is not yet appointed with a primary care provider. I did spend time discussing ways to manage anxiety and panic that can include talk and cognitive therapy as well as the initiation of an SSRI or SS and I. However for occasional panic I discussed the option of the use of a low-dose beta-harjinder like propanolol. Patient is worried that he will have adverse effect to this therefore he agreed to try a trial dose while being monitored here in the emergency department. 184: On reevaluation the patient reports that he feels his anxiety is markedly better than on presentation. His resting heart rate still is in the 100s to the 110s. At this time patient is good to be discharged home. I am going to write an as needed prescription for propanolol 10 mg 3 times daily as needed. He is encouraged to follow closely with his primary care doctor to discuss longer-term management of anxiety, palpitations and tachycardia. He is requested to abstain from CBD, THC and caffeine. Usual emergent return precautions were discussed Departure - Departure Disposition: 01 Home, Self Care Clinical Impression: Tachycardia, Panic attack, Anxiety Condition: Stable Record reviewed to determine appropriate education?: Yes Instructions: ED Anxiety Reaction Ch, Tachycardia Prescriptions: Propranolol [Inderal] 10 mg PO TID PRN #30 tablet PRN Reason: Anxiety Comments: [place] You came to the emergency department today because you have begun having a panic attack over the last 24 hours. You have also noticed a racing heart. Here in the emergency department your chest x-ray was entirely normal without any worrisome findings. Your labs including a CBC, electrolytes were also normal. You are not having a heart attack. Anxiety, panic attacks and tachycardia can be hard to control symptoms. I encourage you to follow-up with your primary doctor to discuss longer-term management of anxiety which can include talk or cognitive therapy as well as some medications. I have sent a prescription to the [facility] in [place] for medication called propanolol. This can be taken 3 times a day as needed for a racing heart or even anxiety. I encourage you to abstain from caffeine containing products, avoid THC and CBD moving forward. If at any point you find that your symptoms are worsening, you have any fainting episodes, severe chest pain or shortness of air you should return immediately to the ER
[2023-02-09 15:54] LABS: BASOPHILS # (AUTO) 0.1 10^3/uL (0.0-0.1); BASOPHILS % (AUTO) 0.8 %; EOSINOPHILS # (AUTO) 0.1 10^3/uL (0.0-0.7); EOSINOPHILS % (AUTO) 0.7 %; HCT - HEMATOCRIT 44.5 % (42.0-52.0); HGB - HEMOGLOBIN 15.3 g/dL (14.0-18.0); LYMPHOCYTES # (AUTO) 2.1 10^3/uL (1.5-3.5); LYMPHOCYTES % (AUTO) 29.9 %; MEAN CORPUSCULAR HEMOGLOBIN 29.6 pg (27.0-31.0); MEAN CORPUSCULAR HGB CONC 34.4 g/dL (32.0-36.0); MEAN CORPUSCULAR VOLUME 86.1 fL (80.0-94.0); MEAN PLATELET VOLUME 10.1 fL (7.4-11.4); MONOCYTES # (AUTO) 0.4 10^3/uL (0.0-1.0); MONOCYTES % (AUTO) 6.2 %; NEUTROPHILS # (AUTO) 4.4 10^3/uL (1.5-6.6); NEUTROPHILS % (AUTO) 62.3 %; PLT - PLATELET COUNT 276 10^3/uL (130-450); RED BLOOD COUNT 5.17 10^6/uL (4.70-6.10); RED CELL DISTRIBUTION WIDTH 12.2 % (12.0-15.0); WHITE BLOOD COUNT 7.1 x10^3/uL (4.8-10.8)
[2023-02-09 16:03] LABS: MUDS CUTOFF CONCENTRATIONS CUTOFF CONC BELOW:
--- OUTSIDE RECORDS SUMMARY | 2023-02-09 16:05 | EXTERNAL MEDICAL SUMMARY RPT | Continuity of Care Document ---
:2000 Author Organization [facility] Address [address] [place] [address] Phone Care Team Providers Name Role Phone Reva Rosa Roblesson Unavailable Unavailable Allergies No information. Encounters No information. Functional Status No information. Immunizations No information. Medications date description facility 2022-11-29 00:00 dexamethasone [facility] 2022-11-29 00:00 adalimumab [facility] 2022-11-29 00:00 budesonide [facility] 2022-11-29 00:00 oxycodone [facility] 2022-11-29 00:00 oxycodone [facility] 2022-11-29 00:00 acetaminophen [facility] 2022-11-29 00:00 budesonide [facility] 2022-11-29 00:00 adalimumab [facility] 2022-11-29 00:00 acetaminophen [facility] 2022-11-29 00:00 dexamethasone [facility] 2022-11-29 00:00 adalimumab [facility] 2022-11-29 00:00 dexamethasone [facility] 2022-11-29 00:00 oxycodone [facility] 2022-11-29 00:00 budesonide [facility] 2022-11-29 00:00 acetaminophen [facility] 2022-11-29 00:00 dexamethasone [facility] 2022-11-29 00:00 acetaminophen [facility] 2022-11-29 00:00 oxycodone [facility] 2022-11-29 00:00 adalimumab [facility] 2022-11-29 00:00 budesonide [facility] Problems No information. Procedures No information. Results/Labs No information. Social History No information. Vital Signs No information.
[2023-02-09 16:06] LABS: ALBUMIN 4.8 g/dL (3.2-5.5); ALBUMIN/GLOBULIN RATIO 1.3 (1.0-2.2); BILIRUBIN,TOTAL 1.1 mg/dL (0.2-1.0); CALCIUM 9.8 mg/dL (8.5-10.3); CREATININE 1.2 mg/dL (0.6-1.2); POTASSIUM 3.4 mmol/L (3.5-5.0); TOTAL PROTEIN 8.5 g/dL (6.7-8.2)
--- NOTE | 2023-02-09 16:09 | XRAY Report ---
PROCEDURE: Chest 1 View X-Ray INDICATIONS: Chest Pain TECHNIQUE: One view of the chest was acquired. COMPARISON: None. FINDINGS: Surgical changes and devices: None. Lungs and pleura: No pleural effusions or pneumothorax. Lungs are clear. Mediastinum: Mediastinal contours appear normal. Heart size is normal. Bones and chest wall: No suspicious bony lesions. Overlying soft tissues appear unremarkable. IMPRESSION: No evidence of an acute cardiopulmonary abnormality. Reviewed by: Jhonny Segal DO on 02/09/2023 3:08 PM DEM[facility] Approved by: Jhonny Segal DO on 02/09/2023 3:08 PM DEM[facility] Station ID: [id number]
[2023-02-09 16:15] LABS: AMPHETAMINE SCREEN,URINE NEGATIVE (NEGATIVE); BARBITURATE SCREEN,UR NEGATIVE (NEGATIVE); BENZODIAZEPINES SCREEN, URINE NEGATIVE (NEGATIVE); COCAINE SCREEN URINE NEGATIVE (NEGATIVE); METHADONE SCREEN, URINE NEGATIVE (NEGATIVE); METHAMPHETAMINES SCREEN, URINE NEGATIVE (NEGATIVE); OPIATE SCREEN, URINE NEGATIVE (NEGATIVE); OXYCODONE SCREEN, URINE NEGATIVE (NEGATIVE); PROPOXYPHENE SCREEN, URINE NEGATIVE (NEGATIVE); THC CANNABINOID SCREEN, URINE NEGATIVE (NEGATIVE); TRICYCLIC ANTIDEPRESSANT,URINE NEGATIVE (NEGATIVE)
[2023-02-09] MEDS ORDERED: PROPRANOLOL 10 MG TABLET PO STA (17:23)
[2023-02-09 18:33] VITALS: BP 132/85
== END 2023-02-09 18:55 | disposition home or self-care (01) ==
LOC: ED 15:20
DX: R00.0 Tachycardia, unspecified (principal); F41.9 Anxiety disorder, unspecified; Z79.899 Other long term (current) drug therapy; Z79.51 Long term (current) use of inhaled steroids
CPT/HCPCS: 36415; 71045; 80053; 80306; 83690; 84484; 85025; 93005; 96374; 99284; A9270; J2060; 85379

== ENCOUNTER 2023-09-16 10:45 | Outpatient (CLI) | payer MEDICAID ==
[2023-09-16 10:59] LABS: BASOPHILS # (AUTO) 0.1 10^3/uL (0.0-0.1); BASOPHILS % (AUTO) 1.1 %; EOSINOPHILS # (AUTO) 0.2 10^3/uL (0.0-0.7); HCT - HEMATOCRIT 44.1 % (42.0-52.0); HGB - HEMOGLOBIN 14.4 g/dL (14.0-18.0); LYMPHOCYTES # (AUTO) 2.1 10^3/uL (1.5-3.5); LYMPHOCYTES % (AUTO) 38.3 %; MEAN CORPUSCULAR HEMOGLOBIN 29.3 pg (27.0-31.0); MEAN CORPUSCULAR HGB CONC 32.7 g/dL (32.0-36.0); MEAN CORPUSCULAR VOLUME 89.6 fL (80.0-94.0); MEAN PLATELET VOLUME 9.5 fL (7.4-11.4); MONOCYTES # (AUTO) 0.6 10^3/uL (0.0-1.0); MONOCYTES % (AUTO) 10.2 %; NEUTROPHILS # (AUTO) 2.6 10^3/uL (1.5-6.6); NEUTROPHILS % (AUTO) 47.2 %; PLT - PLATELET COUNT 249 10^3/uL (130-450); RED BLOOD COUNT 4.92 10^6/uL (4.70-6.10); RED CELL DISTRIBUTION WIDTH 12.5 % (12.0-15.0); WHITE BLOOD COUNT 5.4 x10^3/uL (4.8-10.8)
[2023-09-16 11:17] LABS: ALBUMIN 4.7 g/dL (3.2-5.5); ALBUMIN/GLOBULIN RATIO 1.4 (1.0-2.2); ALKALINE PHOSPHATASE 49 IU/L (42-121); ALT ALANINE AMINOTRANSFERASE 20 IU/L (10-60); AST ASPARTATE AMINOTRANSFERASE 17 IU/L (10-42); BILIRUBIN,TOTAL 0.7 mg/dL (0.2-1.0); BUN - BLOOD UREA NITROGEN 14 mg/dL (6-20); CALCIUM 9.9 mg/dL (8.5-10.3); CARBON DIOXIDE - CO2 32 mmol/L (21-32); CHLORIDE 100 mmol/L (101-111); CREATININE 0.9 mg/dL (0.6-1.3); CRP - C-REACTIVE PROTEIN < 0.5 mg/dL (<0.5); GFR - MDRD 106 (>89); GLUCOSE 92 mg/dL (74-104); POTASSIUM 3.8 mmol/L (3.5-4.5); SODIUM 135 mmol/L (135-145)
== END 2023-09-16 10:46 | disposition home or self-care (01) ==
LOC: LAB 10:45
PROVIDERS: ATTEND Internal Medicine Gastroenterology
DX: K50.10 Crohn's disease of large intestine without complications (principal)
CPT/HCPCS: 36415; 80053; 85025; 86140

== ENCOUNTER 2023-12-10 13:35 | Outpatient (CLI) | payer MEDICAID ==
[2023-12-10 13:59] LABS: BASOPHILS # (AUTO) 0.1 10^3/uL (0.0-0.1); BASOPHILS % (AUTO) 1.4 %; EOSINOPHILS # (AUTO) 0.1 10^3/uL (0.0-0.7); EOSINOPHILS % (AUTO) 2.8 %; HCT - HEMATOCRIT 42.9 % (42.0-52.0); HGB - HEMOGLOBIN 14.3 g/dL (14.0-18.0); LYMPHOCYTES # (AUTO) 1.6 10^3/uL (1.5-3.5); LYMPHOCYTES % (AUTO) 32.5 %; MEAN CORPUSCULAR HEMOGLOBIN 29.8 pg (27.0-31.0); MEAN CORPUSCULAR HGB CONC 33.3 g/dL (32.0-36.0); MEAN CORPUSCULAR VOLUME 89.4 fL (80.0-94.0); MEAN PLATELET VOLUME 9.8 fL (7.4-11.4); MONOCYTES # (AUTO) 0.4 10^3/uL (0.0-1.0); MONOCYTES % (AUTO) 8.1 %; NEUTROPHILS # (AUTO) 2.8 10^3/uL (1.5-6.6); PLT - PLATELET COUNT 265 10^3/uL (130-450); RED CELL DISTRIBUTION WIDTH 12.6 % (12.0-15.0)
[2023-12-10 14:19] LABS: ALBUMIN 4.5 g/dL (3.2-5.5); ALBUMIN/GLOBULIN RATIO 1.3 (1.0-2.2); ALKALINE PHOSPHATASE 48 IU/L (42-121); ALT ALANINE AMINOTRANSFERASE 16 IU/L (10-60); AST ASPARTATE AMINOTRANSFERASE 17 IU/L (10-42); BILIRUBIN,TOTAL 0.8 mg/dL (0.2-1.0); BUN - BLOOD UREA NITROGEN 10 mg/dL (6-20); CALCIUM 9.7 mg/dL (8.5-10.3); CARBON DIOXIDE - CO2 28 mmol/L (21-32); CHLORIDE 102 mmol/L (101-111); CREATININE 0.9 mg/dL (0.6-1.3); CRP - C-REACTIVE PROTEIN < 0.5 mg/dL (<0.5); GFR - MDRD 105 (>89); GLUCOSE 99 mg/dL (74-104); POTASSIUM 3.8 mmol/L (3.5-4.5); SODIUM 136 mmol/L (135-145); TOTAL PROTEIN 7.9 g/dL (6.4-8.9)
== END 2023-12-10 13:36 | disposition home or self-care (01) ==
LOC: LAB 13:35
PROVIDERS: ATTEND Internal Medicine Gastroenterology
DX: K50.10 Crohn's disease of large intestine without complications (principal)
CPT/HCPCS: 36415; 80053; 81599; 85025; 86140; 86480; 86708; 86709

== ENCOUNTER 2024-04-18 10:52 | Outpatient (CLI) | payer MEDICAID ==
[2024-04-18 11:26] LABS: BASOPHILS # (AUTO) 0.1 10^3/uL (0.0-0.1); EOSINOPHILS # (AUTO) 0.4 10^3/uL (0.0-0.7); EOSINOPHILS % (AUTO) 5.9 %; HCT - HEMATOCRIT 45.5 % (42.0-52.0); HGB - HEMOGLOBIN 14.7 g/dL (14.0-18.0); LYMPHOCYTES # (AUTO) 1.8 10^3/uL (1.5-3.5); LYMPHOCYTES % (AUTO) 24.6 %; MEAN CORPUSCULAR HEMOGLOBIN 29.3 pg (27.0-31.0); MEAN CORPUSCULAR HGB CONC 32.3 g/dL (32.0-36.0); MEAN CORPUSCULAR VOLUME 90.8 fL (80.0-94.0); MONOCYTES # (AUTO) 0.7 10^3/uL (0.0-1.0); NEUTROPHILS # (AUTO) 4.3 10^3/uL (1.5-6.6); NEUTROPHILS % (AUTO) 59.2 %; PLT - PLATELET COUNT 269 10^3/uL (130-450); RED BLOOD COUNT 5.01 10^6/uL (4.70-6.10); RED CELL DISTRIBUTION WIDTH 12.7 % (12.0-15.0); WHITE BLOOD COUNT 7.2 x10^3/uL (4.8-10.8)
[2024-04-18 11:37] LABS: ALBUMIN 4.6 g/dL (3.2-5.5); ALBUMIN/GLOBULIN RATIO 1.3 (1.0-2.2); ALKALINE PHOSPHATASE 55 IU/L (42-121); ALT ALANINE AMINOTRANSFERASE 25 IU/L (10-60); AST ASPARTATE AMINOTRANSFERASE 18 IU/L (10-42); BILIRUBIN,TOTAL 0.8 mg/dL (0.2-1.0); BUN - BLOOD UREA NITROGEN 12 mg/dL (6-20); CALCIUM 10.1 mg/dL (8.5-10.3); CARBON DIOXIDE - CO2 31 mmol/L (21-32); CHLORIDE 102 mmol/L (101-111); CRP - C-REACTIVE PROTEIN < 0.5 mg/dL (<0.5); GFR - MDRD 93 (>89); GLUCOSE 83 mg/dL (74-104); POTASSIUM 3.8 mmol/L (3.5-4.5); SODIUM 138 mmol/L (135-145); TOTAL PROTEIN 8.2 g/dL (6.4-8.9)
== END 2024-04-18 10:53 | disposition home or self-care (01) ==
LOC: LAB 10:52
PROVIDERS: ATTEND Internal Medicine Gastroenterology
DX: K50.10 Crohn's disease of large intestine without complications (principal)
CPT/HCPCS: 36415; 80053; 85025; 86140

== ENCOUNTER 2024-07-22 10:31 | Outpatient (CLI) | payer MEDICAID ==
[2024-07-22 10:46] LABS: BASOPHILS # (AUTO) 0.1 10^3/uL (0.0-0.1); BASOPHILS % (AUTO) 1.4 %; EOSINOPHILS # (AUTO) 0.3 10^3/uL (0.0-0.7); EOSINOPHILS % (AUTO) 5.5 %; HCT - HEMATOCRIT 44.7 % (42.0-52.0); HGB - HEMOGLOBIN 14.5 g/dL (14.0-18.0); LYMPHOCYTES # (AUTO) 1.8 10^3/uL (1.5-3.5); MEAN CORPUSCULAR HEMOGLOBIN 29.2 pg (27.0-31.0); MEAN CORPUSCULAR HGB CONC 32.4 g/dL (32.0-36.0); MEAN CORPUSCULAR VOLUME 89.9 fL (80.0-94.0); MEAN PLATELET VOLUME 9.6 fL (7.4-11.4); MONOCYTES # (AUTO) 0.6 10^3/uL (0.0-1.0); MONOCYTES % (AUTO) 9.7 %; NEUTROPHILS % (AUTO) 52.2 %; PLT - PLATELET COUNT 248 10^3/uL (130-450); RED BLOOD COUNT 4.97 10^6/uL (4.70-6.10); RED CELL DISTRIBUTION WIDTH 12.6 % (12.0-15.0); WHITE BLOOD COUNT 5.7 x10^3/uL (4.8-10.8)
[2024-07-22 10:56] LABS: % IRON SATURATION 30 % (20-50); ALBUMIN 4.6 g/dL (3.2-5.5); ALBUMIN/GLOBULIN RATIO 1.4 (1.0-2.2); ALKALINE PHOSPHATASE 54 IU/L (42-121); ALT ALANINE AMINOTRANSFERASE 18 IU/L (10-60); AST ASPARTATE AMINOTRANSFERASE 16 IU/L (10-42); BILIRUBIN,TOTAL 0.6 mg/dL (0.2-1.0); BUN - BLOOD UREA NITROGEN 15 mg/dL (6-20); CALCIUM 9.8 mg/dL (8.5-10.3); CARBON DIOXIDE - CO2 29 mmol/L (21-32); CHLORIDE 102 mmol/L (101-111); CREATININE 0.9 mg/dL (0.6-1.3); CRP - C-REACTIVE PROTEIN < 0.5 mg/dL (<0.5); GFR - MDRD 105 (>89); GLUCOSE 97 mg/dL (74-104); IRON 104 ug/dL (50-212); POTASSIUM 3.8 mmol/L (3.5-4.5); SODIUM 135 mmol/L (135-145); TOTAL IRON BINDING CAPACITY 343 ug/dL (250-450); TOTAL PROTEIN 7.8 g/dL (6.4-8.9); TRANSFERRIN 245 mg/dL (203-362)
== END 2024-07-22 10:32 | disposition home or self-care (01) ==
LOC: LAB 10:31
PROVIDERS: ATTEND Internal Medicine Gastroenterology
DX: K50.10 Crohn's disease of large intestine without complications (principal)
CPT/HCPCS: 36415; 80053; 82306; 82607; 82746; 83540; 84466; 85025; 86140